=== PATIENT | male | born 1985 | race American Indian/Alaskan Native ===

== ENCOUNTER 2018-11-28 00:49 | Emergency (ER) | payer OTHER ==
[2018-11-28 02:14] LABS: Basophils % (Auto) 1.4 % (0.0-1.8); Eosinophils # (Auto) 0.1 K/mm3 (0.0-0.4); Eosinophils % (Auto) 3.9 % (0.0-4.3); Hematocrit 39.3 % (35.5-45.6); Lymphocytes # (Auto) 1.3 K/mm3 (1.2-5.4); Lymphocytes % (Auto) 37.5 % (13.4-35.0); Mean Corpuscular HGB Conc 33 % (32-34); Mean Corpuscular Volume 94 fl (84-94); Monocytes # (Auto) 0.5 K/mm3 (0.0-0.8); Monocytes % (Auto) 13.3 % (0.0-7.3); Platelet Count 166 K/mm3 (140-440); Red Cell Distribution Width 14.2 % (13.2-15.2)
[2018-11-28 02:24] LABS: BUN/Creatinine Ratio 11; Blood Urea Nitrogen 14 mg/dL (9-20); Calcium 9.5 mg/dL (8.4-10.2); Hemolysis Index 12
--- NOTE | 2018-11-28 02:33 | Emergency Department Report ---
ED Psych HPI - General Chief Complaint: Psych Stated Complaint: JOSE E MORALES Time Seen by Provider: 11/28/18 02:24 Source: patient Mode of arrival: Ambulatory Limitations: No Limitations - History of Present Illness Initial Comments: 33 y.o aaki who is here in ER, requesting help for suicidal ideations. he states he lost his best friend last week, and has been very depressed since. He has been so depressed in the last three days that he is thinking about hanging himself. He has three step children and a girlfriend and they are the reasons he has killed himself yet. He has no past history of depression. He denies any alcohol or illicit drug use. no auditory or visual hallucinations. - Related Data Home Medications Medication Instructions Recorded Confirmed Last Taken Albuterol Sulfate [Proventil Hfa] 11/28/18 Unknown No Known Home Medications [No 11/28/18 11/28/18 Unknown Reported Home Medications] Allergies Allergy/AdvReac Type Severity Reaction Status Date / Time No Known Allergies Allergy Verified 11/28/18 00:55 ED Review of Systems ROS: Stated complaint: JOSE E MORALES Other details as noted in HPI Comment: All other systems reviewed and negative Eyes: denies: eye pain Respiratory: denies: cough Cardiovascular: denies: chest pain, palpitations Gastrointestinal: denies: abdominal pain, nausea Genitourinary: denies: urgency Musculoskeletal: denies: back pain Skin: denies: rash Neurological: denies: headache Psychiatric: anxiety, depression, suicidal thoughts ED Past Medical Hx - Past Medical History Previous Medical History?: Yes Hx Psychiatric Treatment: Yes (depression) Hx Asthma: Yes - Surgical History Past Surgical History?: No - Social History Smoking Status: Current Every Day Smoker Substance Use Type: None - Medications Home Medications: Home Medications Medication Instructions Recorded Confirmed Last Taken Type Albuterol Sulfate [Proventil Hfa] 11/28/18 Unknown History No Known Home Medications [No 11/28/18 11/28/18 Unknown History Reported Home Medications] ED Physical Exam - General Limitations: No Limitations General appearance: alert, in no apparent distress - Head Head exam: Present: atraumatic - Eye Eye exam: Present: normal appearance Pupils: Present: normal accommodation - ENT ENT exam: Present: normal exam, normal orophraynx - Neck Neck exam: Present: normal inspection - Respiratory Respiratory exam: Present: normal lung sounds bilaterally - Cardiovascular Cardiovascular Exam: Present: regular rate, normal rhythm - GI/Abdominal GI/Abdominal exam: Present: soft, normal bowel sounds - Psychiatric Psychiatric exam: Present: depressed, suicidal ideation ED Course Vital Signs 11/28/18 11/28/18 11/28/18 00:57 02:06 02:59 Temperature 97.8 F 97.5 F L Pulse Rate 88 76 Respiratory 18 17 16 Rate Blood Pressure 102/61 109/72 [Right] O2 Sat by Pulse 99 97 99 Oximetry ED Medical Decision Making - Lab Data Result diagrams: 11/28/18 01:45 11/28/18 01:45 Critical care attestation.: If time is entered above; I have spent that time in minutes in the direct care of this critically ill patient, excluding procedure time. ED Disposition Clinical Impression: Suicidal ideations Disposition: [id number]/TX-65 PSY HOSP/PSY UNIT Is pt being admited?: No Does the pt Need Aspirin: No Condition: Stable Referrals: TIA AUSTIN MD [Primary Care Provider] - 3-5 Days
[2018-11-28 02:37] LABS: Bilirubin,Urine NEG (Negative); Blood,Urine NEG (Negative); Color,Urine Yellow (Yellow); Mucus,Urine 3+ /HPF; Protein,Urine <15 mg/dL mg/dL (Negative)
[2018-11-28 02:45] LABS: Amphetamine Screen,Urine PRESUMPTIVE NEGATIVE; Benzodiazepines Screen,Urine PRESUMPTIVE NEGATIVE; Methadone Screen,Urine PRESUMPTIVE NEGATIVE; Opiate Screen,Urine PRESUMPTIVE NEGATIVE
[2018-11-28 03:57] LABS: Cannabinoid Screen,Urine PRESUMPTIVE POSITIVE; Cocaine Screen,Urine PRESUMPTIVE POSITIVE
[2018-11-28] MEDS ORDERED: ZITHROMAX PO ONE (06:52)
--- NOTE | 2018-11-28 14:53 | Consultation ---
History of Present Illness - Reason for Consult Consult date: 11/28/18 Reason for consult: Initial Psychiatric Evaluation - Chief Complaint Chief complaint: Patient is nonverbal. He verbalizes that he doesn't want to talk right now. - History of Present Psychiatric Illness Patient is nonverbal. He states, "I don't want to talk right now." Patient is a 33 year old male who presents to the emergency room with suicidal ideations. Per record patient has a plan to hang self. He states that he lost his best friend last week, and has been very depressed since. He has been so depressed in the last three days that he is thinking about hanging himself. He has three step children and a girlfriend and they are the reasons he has killed himself yet. He has no past history of depression. He denies any alcohol or illicit drug use. no auditory or visual hallucinations. Patient is nonverbal. He states, "I don't want to talk right now." Current Psychiatric Medications: Unable to Assess. Past Psychiatric History: Unable to Assess. History of Trauma/Abuse: Unable to Assess. History of Alcohol/Drug Abuse: Unable to Assess. Social History: Unable to Assess. History of Family History Psychiatric Illness/Substance Abuse: Unable to Assess. Medications and Allergies Allergies Allergy/AdvReac Type Severity Reaction Status Date / Time No Known Allergies Allergy Verified 11/28/18 00:55 Home Medications Medication Instructions Recorded Confirmed Last Taken Type Albuterol Sulfate [Proventil Hfa] 11/28/18 Unknown History No Known Home Medications [No 11/28/18 11/28/18 Unknown History Reported Home Medications] Mental Status Exam - Vital signs Last Vital Signs Temp 97.9 F 11/28/18 08:47 Pulse 89 11/28/18 08:47 Resp 18 11/28/18 08:47 BP 118/72 11/28/18 08:47 Pulse Ox 100 11/28/18 08:47 - Exam Narrative exam: Mental Status Exam Appearance: calm Behavior: uncooperative, guarded Speech: regular rate and tone Mood: unable to assess Affect: unable to assess Thought Process: unable to assess Thought Content: unable to assess Motor Activity: laying down Cognition: unable to assess Insight: unable to assess Judgment: unable to assess Results Result Diagrams: 11/28/18 01:45 11/28/18 01:45 Abnormal lab results 11/28/18 11/28/18 11/28/18 Range/Units 01:45 01:45 01:45 WBC 3.5 L (4.5-11.0) K/mm3 Lymph % (Auto) 37.5 H (13.4-35.0) % [place] % (Auto) 13.3 H (0.0-7.3) % Seg Neutrophils # 1.5 L (1.8-7.7) K/mm3 Urine WBC (Auto) (0.0-6.0) /HPF Salicylates < 0.3 L (2.8-20.0) mg/dL Acetaminophen < 5.0 L (10.0-30.0) ug/mL 11/28/18 Range/Units 02:06 WBC (4.5-11.0) K/mm3 Lymph % (Auto) (13.4-35.0) % [place] % (Auto) (0.0-7.3) % Seg Neutrophils # (1.8-7.7) K/mm3 Urine WBC (Auto) 12.0 H (0.0-6.0) /HPF Salicylates (2.8-20.0) mg/dL Acetaminophen (10.0-30.0) ug/mL All other labs normal. Assessment and Plan Assessment and plan: Impression: Unable to complete assessment. Patient is uncooperative. Recommendation/Plan: 1. Continue 1013. 2. Will attempt to reassess in 24 hours. Disposition: Will refer to inpatient psychiatric services. Will staff with Dr. Rupinder Askew.
--- NOTE | 2018-11-29 17:43 | Progress Note ---
Subjective - Reason for Consult Consult date: 11/29/18 Reason for consult: follow up - Chief Complaint Chief complaint: "I want to be alone." He prefers to be alone but expressed how depressed and suicidal he is. He found out today the children were taken out of the home. He said the children and his girlfriend are the reason he did not kill himself. He reports being suicidal with a plan but will not discuss. Mental Status Exam - Vital signs Last Vital Signs Temp 98.8 F 11/29/18 14:09 Pulse 73 11/29/18 14:09 Resp 18 11/29/18 14:09 BP 108/64 11/29/18 14:09 Pulse Ox 99 11/29/18 14:09 - Exam Narrative exam: Appearance: calm Behavior: guarded Speech: regular rate and tone Mood: depressed/hopeless Affect: congruent Thought Process: linear Thought Content: suicidal ideation with a plan Motor Activity: WNL Cognition: alert Insight: fair Judgment: variable Assessment and Plan Impression: major depressive disorder, recurrent, severe Recommendation/Plan: 1. Continue 1013. 2. declines medications but has been on wellbutrin in the past Disposition: Will refer to inpatient psychiatric services. Will staff with Dr. Rupinder Asekw.
--- NOTE | 2018-11-30 18:04 | Progress Note ---
Subjective - Reason for Consult Consult date: 11/30/18 Reason for consult: follow up - Chief Complaint Chief complaint: "What's the hold up?" He states he was upset because his friend this week. He denies suicidal or homicidal ideation. He wants to get back to work and wants to get back home to his girlfriend. He says the rent is late and his workplace at [employer] won't release his check in order for his girlfriend to pay it. He reports being rested and says that is what he needed. He denies psychotic symptoms. Mental Status Exam - Vital signs Last Vital Signs Temp 97.6 F 11/30/18 08:36 Pulse 72 11/30/18 08:36 Resp 18 11/30/18 08:36 BP 105/70 11/30/18 08:36 Pulse Ox 97 11/30/18 08:36 - Exam Narrative exam: Appearance: calm Behavior: guarded Speech: regular rate and tone Mood: depressed, irritable Affect: congruent Thought Process: linear Thought Content: denies suicidal ideation. denies homicidal ideation Motor Activity: WNL Cognition: alert Insight: fair Judgment: variable Assessment and Plan Impression: major depressive disorder, recurrent, severe Recommendation/Plan: 1. Continue 1013. 2. declines medications but has been on wellbutrin in the past He is accepted to [facility] with transport time pending. Disposition: reevaluate 1013 in 24 hours to determine if he meets criteria. [place] scale needed in 24 hours Will staff with Dr. Rupinder Askew.
[2018-12-01 08:44] VITALS: BP 116/69
--- NOTE | 2018-12-01 09:52 | Progress Note ---
Subjective - Reason for Consult Consult date: 12/01/18 Reason for consult: Psychiatry Follow-up - Chief Complaint Chief complaint: 'I'm feeling a lot better" 33 year old male who presents to the emergency room with suicidal ideations. Today the patient patient was calm and cooperative during the assessment. Per collateral information from the patient's girlfriend Aislinn Jimenez at [phone], she denies any previous suicide attempts by the patient in the past. She stated that the patient would be "okay" if discharged. The patient denies SI/HI's and AVH's. Mental Status Exam - Vital signs Last Vital Signs Temp 97.4 F L 12/01/18 08:42 Pulse 63 12/01/18 08:42 Resp 18 12/01/18 08:42 BP 116/69 12/01/18 08:42 Pulse Ox 99 12/01/18 00:00 - Exam Narrative exam: MSE: Appearance: calm, cooperative Behavior: regular eye contact Speech: regular rate and tone Mood: "much better" Affect: congruent to mood Thought Process: linear Thought Content: denies SI/HI's and AVH's Motor Activity: sitting up in bed Cognition: A/O x 3 Insight: appropriate Judgment: appropriate Assessment and Plan Impression: MDD. Substance Use DO. Cannabis Use DO. Today the patient was calm and cooperative during the assessment. The patient is no threat to self. DDx: Substance Indued Mood DO SUICIDE RISK ASSESSMENT III. FACTORS THAT INCREASE RISK: A.) Demographic and Substance Use Factors: Yes (Marijuana, Cocaine, and Marijuana) B.) Current/Recent Factors (within past 3 months): Psychosocial/Environmental Factors: Friend recently murdered Physical Illness: None Cognitive/Psychological Factors: None C.) Historical Factors: None D.) Diagnostic/Symptom/Treatment Factors: None E.) Acute Risk Factor Severity (DESC; MILD/MOD/SEVERE): Mild Other factors for this individual that increase risk: None IV. FACTORS THAT DECREASE RISK: Resilience/Protective Factors: Patient want to handle the lost of his friend in a better way Other factors for this individual that decrease risk: Patient denies a desire to harm self V. Clinician's Formulation of Risk and Determination of level of Care: This is a 33 y.o. AA male who presented to [facility] ER for SI's. The patient has a hx of substance abuse. The patient stated that he have done a lot of reflecting since his arrival to the ER. He stated, "I have a lot to live for." He stated that he will follow-up with outpatient psy services once discharged. Since being hospitalized the patient has consistently denied the desire to harm himself. Additionally, he has become insightful about how to better address her current issues. The patient is not impaired by substance. He is able to take care of her ADLs and is not at imminent risk of harm to self or others. Consequently, it is the opinion of the treatment team that the patient is at low risk of suicide and does not meet criteria to continue an involuntary psychiatric hold. Estimation of Imminent Risk: Low due to the above explanation. Determination of Level of Care based on Suicide Risk: Outpatient follow-up. Narrative description of clinical reasoning. Given the fact that the patient is willing to engage in outpatient psy services and has a supportive network (girlfriend), it is reasonable to expect that the patient will seek services. At this current time, he is not impulsive and does not have any risk factors to increase the likelihood of his impulsive behavior. Therefore, it is reasonable to expect that the patient will engage in outpatient psy services which will reduce further unsafe behaviors. . Plan and Interventions based on Suicide Risk: This patient will likely be s tepped down to an outpatient mental health center in the community upon discharge and follow-up within 7 days of his discharge from the hospital. VII. Discharge/After Hours Support Plan: Patient can return back to the ER, call 911 or crisis line if symptoms of depression, anxiety, suicidality return. Recommendation/Plan: Rescind 1013. Risks/Benefits of antidepressants was discussed with the patient, but he prefer talk therapy at this time. Discussed the importance to abstain from recreational drug use, he verbalized understanding. Safety Contract was completed with the patient. Dispo: The patient can follow up at [facility] for outpatient psy/rehab services. Staffed with Dr Rupinder Askew,
== END 2018-12-01 10:40 | disposition home or self-care (01) ==
LOC: EEVIPCON 00:49 → ED 00:49
DX: F32.9 Major depressive disorder, single episode, unspecified (principal); R45.851 Suicidal ideations
CPT/HCPCS: 36415; 80048; 80307; 81001; 85025; 99284; G0480; 80320; J0153